=== PATIENT | female | born 1935 | race Caucasian/White ===

== ENCOUNTER 2020-11-28 14:43 | Inpatient (IN) | payer OTHER, MEDICAID ==
[~2020-11-28] VITALS: Ht 167.6 cm; Wt 80.4 kg
[2020-11-28 15:18] LABS: Basophils # (auto) 0 10 ^3/uL (0-0.2); Basophils % (auto) 0.2 % (0.0-2.0); Eosinophils # (auto) 0 10 ^3/uL (0-0.8); Hematocrit 35.6 % (36.0-46.0); Hemoglobin 11.8 g/dL (12.2-16.2); Lymphocytes # (auto) 0.8 10 ^3/uL (0.4-5.4); Lymphocytes % (auto) 8.5 % (10.0-50.0); Mean Corpuscular Hemoglobin 29.9 pg (28.0-32.0); Mean Corpuscular Hgb Conc. 33.2 g/dL (32.0-36.0); Monocytes # (auto) 0.9 10 ^3/uL (0-1.3); Monocytes % (auto) 9.4 % (0.0-12.0); Neutrophils # (auto) 7.7 10 ^3/uL (1.6-8.6); Neutrophils % (auto) 81.9 % (37.0-80.0); Nucleated Red Blood Cells % 0.1 %; Platelet Count (auto) 339 10^3/uL (140-450); Red Blood Cells 3.96 10^6/uL (4.0-5.20); Red Cell Distribution Width 17.4 % (11.8-14.3); White Blood Cell 9.4 10^3/uL (4.4-10.8)
[2020-11-28 15:27] LABS: Anion Gap 5 (5-15); Blood Urea Nitrogen 62 mg/dL (7-18); Carbon Dioxide 29 mmol/L (21-32); Chloride 109 mmol/L (98-107); Glucose 122 mg/dL (74-106); Sodium 143 mmol/L (136-145)
[2020-11-28 15:28] LABS: INR 1.29 (0.9-1.15)
[2020-11-28 15:29] LABS: Alanine Aminotransferase 15 U/L (13-56); Aspartate Aminotransferase 34 U/L (15-37); BUN/Creatinine Ratio 40.5; Blood Alcohol < 3.0 mg/dL (0-5); GFR African American 42 mL/min; GFR Non-African American 34 mL/min; Partial Thromboplastin Time < 20.0 sec (23.0-31.2)
[2020-11-28 15:29] LABS: Lactic Acid w/Reflex 2.1 mmol/L (0.4-2.0)
[2020-11-28 15:34] LABS: Alkaline Phosphatase 87 U/L (45-117); Bilirubin, Total 1.4 mg/dL (0.2-1.0); Total Protein 10.8 g/dL (6.4-8.2)
[2020-11-28] MEDS ORDERED: SODIUM CHLORIDE 0.9% 1,000 ML IV ONE (15:45)
[2020-11-28] MEDS ORDERED: SODIUM CHLORIDE 0.9% 500 ML IVB ONE (15:45)
[2020-11-28 15:52] LABS: Calcium 13.8 mg/dL (8.5-10.1); Potassium 2.7 mmol/L (3.5-5.1)
[2020-11-28] MEDS: POTASSIUM CHL 20MEQ/100ML 100 ML IV SCH ×2 (18:07→20:52)
[2020-11-28] MEDS ORDERED: methylPREDNISolone SOD SUCC 125 MG/2 ML VL IV ONE (19:15)
[2020-11-28] MEDS ORDERED: FUROSEMIDE 40 MG/4 ML VIAL IV ONE (19:15)
[2020-11-28 22:33] LABS: Urine Amorphous Crystal FEW /hpf (None Seen); Urine Bacteria MOD /hpf (None Seen); Urine Blood 1+ /uL (Negative); Urine Hyaline Cast FEW /lpf (0 - 2); Urine WBC 21 /hpf (0 - 5)
[2020-11-28] MEDS ORDERED: DOCUSATE SOD 100 MG CAP PO PRN (23:00)
[2020-11-28] MEDS ORDERED: NITROGLYCERIN 0.4 MG SL TAB SL PRN (23:00)
[2020-11-28] MEDS ORDERED: ACETAMINOPHEN 325 MG TAB PO PRN (23:00)
[2020-11-28] MEDS ORDERED: MORPHINE SULF INJ 2 MG/ML SYRINGE 1ML IV PRN (23:00)
[2020-11-28] MEDS ORDERED: HYDROcodone-ACET 5/325MG TAB PO PRN (23:00)
[2020-11-28] MEDS ORDERED: ONDANSETRON HCL 4 MG/2 ML VIAL IV PRN (23:00)
[2020-11-28] MEDS: SOD CHL 0.45% 1,000 ML IV SCH (23:13)
[2020-11-28 23:17] LABS: Alcohol, Urine < 3.0 mg/dL (0-10); Amphetamine Screen, Urine NEGATIVE (NEGATIVE); Barbiturate Scree,Urine NEGATIVE (NEGATIVE); Benzodiazephine Screen, Urine NEGATIVE (NEGATIVE); Cannabinoid Screen, Urine NEGATIVE (NEGATIVE); Cocaine Screen, Urine NEGATIVE (NEGATIVE); Opiate Scree,Urine NEGATIVE (NEGATIVE); Phencyclidine Screen, Urine NEGATIVE (NEGATIVE)
[2020-11-29 07:39] LABS: Basophils # (auto) 0 10 ^3/uL (0-0.2); Basophils % (auto) 0.1 % (0.0-2.0); Eosinophils # (auto) 0 10 ^3/uL (0-0.8); Hematocrit 33.1 % (36.0-46.0); Hemoglobin 10.7 g/dL (12.2-16.2); Lymphocytes # (auto) 0.8 10 ^3/uL (0.4-5.4); Lymphocytes % (auto) 10.6 % (10.0-50.0); Mean Corpuscular Hemoglobin 29.1 pg (28.0-32.0); Mean Corpuscular Hgb Conc. 32.4 g/dL (32.0-36.0); Mean Corpuscular Volume 89.7 fL (80.0-100.0); Monocytes # (auto) 0.4 10 ^3/uL (0-1.3); Neutrophils # (auto) 6.5 10 ^3/uL (1.6-8.6); Neutrophils % (auto) 84.3 % (37.0-80.0); Nucleated Red Blood Cells % 0.3 %; Platelet Count (auto) 304 10^3/uL (140-450); Red Blood Cells 3.69 10^6/uL (4.0-5.20); Red Cell Distribution Width 17.9 % (11.8-14.3); White Blood Cell 7.7 10^3/uL (4.4-10.8)
[2020-11-29 07:56] LABS: Albumin 1.7 g/dL (3.4-5.0); Calcium 11.9 mg/dL (8.5-10.1)
[2020-11-29 07:59] LABS: BUN/Creatinine Ratio 43.5
[2020-11-29 08:03] LABS: Bilirubin, Total 1.2 mg/dL (0.2-1.0)
[2020-11-29] MEDS: SOD CHL 0.45% 1,000 ML IV SCH (09:36)
[2020-11-29] MEDS ORDERED: POTASSIUM CHLORIDE 40 MEQ, LIDOCAINE 1% (LOCAL ANESTH.) 4 ML in SODIUM CHL 0.9% 250 ML IV ONE (09:45)
[2020-11-29] MEDS ORDERED: PIPERACILLIN-TAZOB 3.375GM 100 ML IV ONE (09:45)
[2020-11-29] MEDS: ZINC SULFATE 220mg CAP or TAB PO SCH (10:00)
[2020-11-29] MEDS: ASCORBIC ACID 500 MG TAB PO SCH ×2 (10:00→21:44)
[2020-11-29] MEDS: MULTIPLE VITAMIN TAB PO SCH (10:00)
[2020-11-29 11:31] LABS: Protein, Urine 33.8 mg/dL (0.0-11.9)
[2020-11-29 11:46] LABS: Calcium 12.2 mg/dL (8.5-10.1)
[2020-11-29 11:51] LABS: BUN/Creatinine Ratio 45.9; Phosphorus 3.5 mg/dL (2.5-4.90)
[2020-11-29] MEDS: AZITHROMYCIN 500MG/ 250ML 250 ML IV SCH (11:52)
[2020-11-29] MEDS: FAMOTIDINE (10MG/ML) 2ML VL IV SCH (11:52)
[2020-11-29] MEDS: D5W/SOD CHL 0.9%/KCL 40MEQ 1,000 ML IV SCH (11:52)
[2020-11-29] MEDS: PIPERACILLIN-TAZOB 2.25GM 50 ML IV SCH ×2 (11:53→17:33)
[2020-11-29] MEDS: HEPARIN SODIUM (PORCINE) 5000 UNITS/ML 1ML VIAL SC SCH ×2 (11:57→21:45)
[2020-11-29 12:05] LABS: Potassium 2.7 mmol/L (3.5-5.1)
[2020-11-29 13:00] VITALS: BP 101/63
[2020-11-29] MEDS ORDERED: HALOPERIDOL LACTATE 5 MG/ML INJ VIAL IM ONE (14:00)
[2020-11-29 16:00] VITALS: BP 107/63
[2020-11-29] MEDS ORDERED: POTASSIUM CHL 20MEQ/100ML 100 ML IV SCH (16:00)
[2020-11-29 21:46] VITALS: BP_SYST 116; BP_SYST 128; BP_DIAS 78
[2020-11-30] MEDS: PIPERACILLIN-TAZOB 2.25GM 50 ML IV SCH ×4 (01:03→17:10)
[2020-11-30] MEDS: D5W/SOD CHL 0.9%/KCL 40MEQ 1,000 ML IV SCH (05:29)
[2020-11-30 05:33] LABS: Basophils # (auto) 0 10 ^3/uL (0-0.2); Basophils % (auto) 0.1 % (0.0-2.0); Eosinophils # (auto) 0 10 ^3/uL (0-0.8); Eosinophils % (auto) 0.1 % (0.0-7.0); Hematocrit 30.4 % (36.0-46.0); Lymphocytes # (auto) 1.2 10 ^3/uL (0.4-5.4); Lymphocytes % (auto) 13.8 % (10.0-50.0); Mean Corpuscular Hemoglobin 29.5 pg (28.0-32.0); Mean Corpuscular Hgb Conc. 32.9 g/dL (32.0-36.0); Mean Corpuscular Volume 89.8 fL (80.0-100.0); Monocytes # (auto) 0.9 10 ^3/uL (0-1.3); Monocytes % (auto) 10.6 % (0.0-12.0); Neutrophils # (auto) 6.4 10 ^3/uL (1.6-8.6); Neutrophils % (auto) 75.4 % (37.0-80.0); Nucleated Red Blood Cells % 0.1 %; Platelet Count (auto) 240 10^3/uL (140-450); Red Blood Cells 3.38 10^6/uL (4.0-5.20); White Blood Cell 8.4 10^3/uL (4.4-10.8)
[2020-11-30 05:52] LABS: Albumin 1.6 g/dL (3.4-5.0); Calcium 11.3 mg/dL (8.5-10.1); Magnesium 2.3 mg/dL (1.6-2.6); Potassium 3.1 mmol/L (3.5-5.1)
[2020-11-30 06:00] LABS: BUN/Creatinine Ratio 43.5; Phosphorus 1.4 mg/dL (2.5-4.90)
[2020-11-30] MEDS ORDERED: CELE100C82 PO (07:53)
[2020-11-30 09:00] VITALS: BP 120/57
[2020-11-30] MEDS ORDERED: D5W/SOD CHL 0.45%/KCL 40MEQ 1,000 ML IV ONE (09:00)
[2020-11-30] MEDS ORDERED: POTASSIUM PHOSPHATE 44 MEQ in D5W 5% 250 ML IV ONE (09:45)
[2020-11-30] MEDS: MULTIPLE VITAMIN TAB PO SCH (10:00)
[2020-11-30] MEDS: AMIODARONE HCL 200 MG TAB PO SCH ×2 (10:00→20:49)
[2020-11-30] MEDS: ASCORBIC ACID 500 MG TAB PO SCH ×2 (10:00→20:48)
[2020-11-30] MEDS: ZINC SULFATE 220mg CAP or TAB PO SCH (10:00)
[2020-11-30] MEDS: FAMOTIDINE (10MG/ML) 2ML VL IV SCH (10:55)
[2020-11-30] MEDS: AZITHROMYCIN 500MG/ 250ML 250 ML IV SCH (10:55)
[2020-11-30] MEDS: POTASSIUM CHL 20MEQ/100ML 100 ML IV SCH ×3 (10:55→15:39)
[2020-11-30] MEDS ORDERED: POTASSIUM CHL 20MEQ/100ML 100 ML IV ONE (11:00)
[2020-11-30] MEDS ORDERED: ENOXAPARIN SOD 40 MG/0.4 ML SYRINGE SC ONE (11:00)
[2020-11-30] MEDS: HEPARIN SODIUM (PORCINE) 5000 UNITS/ML 1ML VIAL SC SCH ×2 (11:19→22:11)
[2020-11-30] MEDS ORDERED: POTASSIUM CHL 20MEQ/100ML 100 ML IV PRN (11:30)
[2020-11-30] MEDS ORDERED: MAGNESIUM SULFATE 1GM/100ML 200 ML IV ONE (11:30)
[2020-11-30] MEDS ORDERED: ZOLEDRONIC ACID 4 MG in SODIUM CHL 0.9% 100 ML IV ONE (11:30)
[2020-11-30] MEDS: D5W 5% 1,000 ML IV SCH ×2 (12:35→19:00)
[2020-11-30 13:00] VITALS: BP 122/74
[2020-11-30] MEDS: CALCITONIN 400unit/2ml Vial (200unit/ml) SC SCH ×2 (13:30→22:00)
[2020-11-30] MEDS ORDERED: DOCUSATE SOD 100 MG CAP PO ONE (13:45)
[2020-11-30 15:04] LABS: Hepatitis B Core IgM Negative; Hepatitis B Surface Antigen Negative (Negative)
[2020-11-30 15:05] LABS: Hepatitis C Antibody Negative (Negative)
[2020-11-30 16:53] VITALS: BP 151/72
[2020-11-30 17:59] LABS: Calcium 10.9 mg/dL (8.5-10.1)
[2020-11-30 18:01] LABS: BUN/Creatinine Ratio 40.6
[2020-11-30 18:27] LABS: Potassium 5.7 mmol/L (3.5-5.1)
[2020-11-30 21:15] LABS: Folate (Folic Acid) 8.31 ng/mL (5.38-24)
[2020-11-30 22:00] VITALS: BP 127/57
[2020-12-01] MEDS: PIPERACILLIN-TAZOB 2.25GM 50 ML IV SCH ×2 (00:21→06:19)
[2020-12-01] MEDS: D5W 5% 1,000 ML IV SCH ×5 (03:00→23:35)
[2020-12-01 05:00] VITALS: BP 124/62
[2020-12-01 07:23] LABS: Basophils # (auto) 0 10 ^3/uL (0-0.2); Basophils % (auto) 0.2 % (0.0-2.0); Eosinophils # (auto) 0 10 ^3/uL (0-0.8); Eosinophils % (auto) 0.7 % (0.0-7.0); Hemoglobin 9.6 g/dL (12.2-16.2); Lymphocytes # (auto) 1.1 10 ^3/uL (0.4-5.4); Lymphocytes % (auto) 18.1 % (10.0-50.0); Mean Corpuscular Hemoglobin 29.9 pg (28.0-32.0); Mean Corpuscular Volume 90.7 fL (80.0-100.0); Monocytes # (auto) 0.6 10 ^3/uL (0-1.3); Monocytes % (auto) 10.4 % (0.0-12.0); Neutrophils # (auto) 4.2 10 ^3/uL (1.6-8.6); Neutrophils % (auto) 70.6 % (37.0-80.0); Nucleated Red Blood Cells % 0.1 %; Platelet Count (auto) 203 10^3/uL (140-450); Red Cell Distribution Width 18.4 % (11.8-14.3)
[2020-12-01 07:38] LABS: Albumin 1.5 g/dL (3.4-5.0); Calcium 10.7 mg/dL (8.5-10.1); Magnesium 2.6 mg/dL (1.6-2.6); Potassium 3.7 mmol/L (3.5-5.1)
[2020-12-01 07:42] LABS: BUN/Creatinine Ratio 38.1; Bilirubin, Total 0.8 mg/dL (0.2-1.0); Phosphorus 1.7 mg/dL (2.5-4.90); Total Protein 7.8 g/dL (6.4-8.2)
[2020-12-01 09:00] VITALS: BP 127/76
[2020-12-01] MEDS: AMIODARONE HCL 200 MG TAB PO SCH ×2 (09:13→21:11)
[2020-12-01] MEDS: ZINC SULFATE 220mg CAP or TAB PO SCH (09:13)
[2020-12-01] MEDS: MULTIPLE VITAMIN TAB PO SCH (09:13)
[2020-12-01] MEDS: ASCORBIC ACID 500 MG TAB PO SCH ×2 (09:13→21:12)
[2020-12-01] MEDS: FAMOTIDINE (10MG/ML) 2ML VL IV SCH (09:26)
[2020-12-01] MEDS: HEPARIN SODIUM (PORCINE) 5000 UNITS/ML 1ML VIAL SC SCH (09:32)
[2020-12-01] MEDS ORDERED: HALOPERIDOL LACTATE 5 MG/ML INJ VIAL IM PRN (10:00)
[2020-12-01] MEDS ORDERED: ENOXAPARIN SOD 30 MG/0.3 ML SYRINGE SC SCH (10:00)
[2020-12-01] MEDS ORDERED: IOPAMIDOL 76 % (ISOVUE-370) 100ML BTL IV ONE (10:50)
[2020-12-01] MEDS: ENOXAPARIN SOD 80 MG/0.8ML SYRINGE SC SCH ×2 (11:02→21:19)
[2020-12-01] MEDS: PIPERACILLIN-TAZOB 3.375GM 100 ML IV SCH ×2 (12:00→17:34)
[2020-12-01 13:00] VITALS: BP 118/70
[2020-12-01 13:06] LABS: Immunoglobulin G, Serum 4824 mg/dL (586-1602)
[2020-12-01 17:00] VITALS: BP 123/60
[2020-12-01 22:00] VITALS: BP 118/67
[2020-12-02 05:00] VITALS: BP 110/62
[2020-12-02] MEDS: D5W 5% 1,000 ML IV SCH ×3 (06:16→23:39)
[2020-12-02] MEDS: PIPERACILLIN-TAZOB 3.375GM 100 ML IV SCH ×5 (06:16→23:39)
[2020-12-02 08:31] VITALS: BP 111/57
[2020-12-02] MEDS: ASCORBIC ACID 500 MG TAB PO SCH ×2 (10:00→20:30)
[2020-12-02] MEDS: ZINC SULFATE 220mg CAP or TAB PO SCH (10:00)
[2020-12-02] MEDS: MULTIPLE VITAMIN TAB PO SCH (10:00)
[2020-12-02] MEDS: AMIODARONE HCL 200 MG TAB PO SCH ×2 (10:00→20:30)
[2020-12-02] MEDS: ENOXAPARIN SOD 80 MG/0.8ML SYRINGE SC SCH ×2 (10:23→21:44)
[2020-12-02] MEDS: FAMOTIDINE (10MG/ML) 2ML VL IV SCH (10:27)
[2020-12-02 11:54] LABS: Potassium 3.5 mmol/L (3.5-5.1)
[2020-12-02 11:58] LABS: Calcium 8.8 mg/dL (8.5-10.1)
[2020-12-02 13:00] VITALS: BP 106/60
[2020-12-02 16:56] VITALS: BP 131/78
[2020-12-02] MEDS ORDERED: VANCOMYCIN PER PHARMACY 0 MG IV SCH (17:45)
[2020-12-02] MEDS: VANCOMYCIN 1GM/250ML 250 ML IV SCH (20:00)
[2020-12-02 22:00] VITALS: BP 128/102
[2020-12-03 05:00] VITALS: BP 120/55
[2020-12-03] MEDS: PIPERACILLIN-TAZOB 3.375GM 100 ML IV SCH (05:58)
[2020-12-03 06:10] LABS: Calcium 8.5 mg/dL (8.5-10.1)
[2020-12-03 06:22] LABS: Basophils # (auto) 0.1 10 ^3/uL (0-0.2); Eosinophils # (auto) 0.1 10 ^3/uL (0-0.8); Eosinophils % (auto) 2.3 % (0.0-7.0); Hematocrit 29.7 % (36.0-46.0); Hemoglobin 9.7 g/dL (12.2-16.2); Lymphocytes % (auto) 14.7 % (10.0-50.0); Mean Corpuscular Hemoglobin 29.2 pg (28.0-32.0); Mean Corpuscular Hgb Conc. 32.9 g/dL (32.0-36.0); Mean Corpuscular Volume 88.9 fL (80.0-100.0); Monocytes # (auto) 0.7 10 ^3/uL (0-1.3); Monocytes % (auto) 10.6 % (0.0-12.0); Neutrophils # (auto) 4.6 10 ^3/uL (1.6-8.6); Neutrophils % (auto) 70.4 % (37.0-80.0); Nucleated Red Blood Cells % 0.2 %; Platelet Count (auto) 194 10^3/uL (140-450); Red Blood Cells 3.34 10^6/uL (4.0-5.20); Red Cell Distribution Width 18.1 % (11.8-14.3); White Blood Cell 6.6 10^3/uL (4.4-10.8)
[2020-12-03] MEDS: POTASSIUM CHL 20MEQ/100ML 100 ML IV PRN (07:33)
[2020-12-03 09:00] VITALS: BP 118/67
[2020-12-03] MEDS: D5W 5% 1,000 ML IV SCH ×2 (09:30→13:45)
[2020-12-03] MEDS: FAMOTIDINE (10MG/ML) 2ML VL IV SCH (09:46)
[2020-12-03] MEDS: ZINC SULFATE 220mg CAP or TAB PO SCH (09:47)
[2020-12-03] MEDS: AMIODARONE HCL 200 MG TAB PO SCH ×2 (09:47→21:48)
[2020-12-03] MEDS: ENOXAPARIN SOD 80 MG/0.8ML SYRINGE SC SCH ×2 (09:47→21:48)
[2020-12-03] MEDS: ASCORBIC ACID 500 MG TAB PO SCH ×2 (09:47→21:49)
[2020-12-03] MEDS: MULTIPLE VITAMIN TAB PO SCH (09:47)
[2020-12-03 13:00] VITALS: BP 113/70
[2020-12-03] MEDS: levoFLOXacin 750MG 150 ML IV SCH (13:34)
[2020-12-03 16:44] VITALS: BP 115/68
[2020-12-03] MEDS: VANCOMYCIN 1GM/250ML 250 ML IV SCH (20:02)
[2020-12-03 22:00] VITALS: BP 126/65
[2020-12-04 05:00] VITALS: BP 159/70
[2020-12-04 06:09] LABS: Basophils # (auto) 0 10 ^3/uL (0-0.2); Basophils % (auto) 0.4 % (0.0-2.0); Eosinophils # (auto) 0.1 10 ^3/uL (0-0.8); Hematocrit 27.1 % (36.0-46.0); Hemoglobin 9.2 g/dL (12.2-16.2); Lymphocytes # (auto) 1.3 10 ^3/uL (0.4-5.4); Lymphocytes % (auto) 21.5 % (10.0-50.0); Mean Corpuscular Hemoglobin 29.8 pg (28.0-32.0); Mean Corpuscular Hgb Conc. 33.9 g/dL (32.0-36.0); Monocytes # (auto) 0.8 10 ^3/uL (0-1.3); Monocytes % (auto) 13.9 % (0.0-12.0); Neutrophils # (auto) 3.8 10 ^3/uL (1.6-8.6); Neutrophils % (auto) 63.2 % (37.0-80.0); Nucleated Red Blood Cells % 0.1 %; Platelet Count (auto) 168 10^3/uL (140-450); Red Blood Cells 3.09 10^6/uL (4.0-5.20); Red Cell Distribution Width 17.9 % (11.8-14.3); White Blood Cell 5.9 10^3/uL (4.4-10.8)
[2020-12-04] MEDS: D5W 5% 1,000 ML IV SCH ×2 (06:25→15:43)
[2020-12-04 06:37] LABS: BUN/Creatinine Ratio 18.2; Calcium 7.6 mg/dL (8.5-10.1)
[2020-12-04] MEDS: POTASSIUM CHL 20MEQ/100ML 100 ML IV PRN (07:39)
[2020-12-04 08:58] VITALS: BP 116/63
[2020-12-04] MEDS: ASCORBIC ACID 500 MG TAB PO SCH ×2 (10:00→22:00)
[2020-12-04] MEDS: ZINC SULFATE 220mg CAP or TAB PO SCH (10:00)
[2020-12-04] MEDS: AMIODARONE HCL 200 MG TAB PO SCH ×2 (10:00→22:00)
[2020-12-04] MEDS: MULTIPLE VITAMIN TAB PO SCH (10:00)
[2020-12-04] MEDS: levoFLOXacin 750MG 150 ML IV SCH (10:49)
[2020-12-04] MEDS: FAMOTIDINE (10MG/ML) 2ML VL IV SCH (10:50)
[2020-12-04] MEDS: ENOXAPARIN SOD 80 MG/0.8ML SYRINGE SC SCH ×2 (10:52→22:06)
[2020-12-04 13:06] VITALS: BP 118/78
[2020-12-04] MEDS ORDERED: POTASSIUM CHLORIDE 40 MEQ, LIDOCAINE 1% (LOCAL ANESTH.) 4 ML in SODIUM CHL 0.9% 250 ML IV ONE (13:15)
[2020-12-04 17:20] VITALS: BP 125/58
[2020-12-04] MEDS: VANCOMYCIN 1GM/250ML 250 ML IV SCH (20:01)
[2020-12-04 22:00] VITALS: BP 117/69
[2020-12-05 05:00] VITALS: BP 117/51
[2020-12-05 06:53] LABS: Hematocrit 27.8 % (36.0-46.0); Hemoglobin 9.5 g/dL (12.2-16.2); Mean Corpuscular Hemoglobin 30.1 pg (28.0-32.0); Mean Corpuscular Hgb Conc. 34.2 g/dL (32.0-36.0); Mean Corpuscular Volume 88.1 fL (80.0-100.0); Platelet Count (auto) 164 10^3/uL (140-450); Red Blood Cells 3.16 10^6/uL (4.0-5.20); Red Cell Distribution Width 18.1 % (11.8-14.3); White Blood Cell 6.7 10^3/uL (4.4-10.8)
[2020-12-05 06:59] LABS: Basophils % (manual) 0 (0.0-2.0); Blast Cells 0; Eosinophils % (manual) 0 (0-7); Myelocytes % 0; Promyelocytes % 0; Reactive Lymphocytes 0
[2020-12-05 07:10] LABS: Potassium 3.1 mmol/L (3.5-5.1)
[2020-12-05 07:19] LABS: BUN/Creatinine Ratio 15.1; Calcium 7.1 mg/dL (8.5-10.1)
[2020-12-05 07:58] LABS: Band Neutrophils % (manual) 39; Lymphocytes % (manual) 14 (10.0-50.0); Metamyelocytes % 1; Monocytes % (manual) 6 (0-12)
[2020-12-05] MEDS: POTASSIUM CHL 20MEQ/100ML 100 ML IV PRN (08:29)
[2020-12-05 08:47] VITALS: BP 121/64
[2020-12-05] MEDS: ZINC SULFATE 220mg CAP or TAB PO SCH (10:00)
[2020-12-05] MEDS: MULTIPLE VITAMIN TAB PO SCH (10:00)
[2020-12-05] MEDS: ASCORBIC ACID 500 MG TAB PO SCH ×2 (10:00→21:09)
[2020-12-05] MEDS: AMIODARONE HCL 200 MG TAB PO SCH ×2 (10:00→21:09)
[2020-12-05] MEDS: levoFLOXacin 750MG 150 ML IV SCH (10:30)
[2020-12-05] MEDS: FAMOTIDINE (10MG/ML) 2ML VL IV SCH (10:30)
[2020-12-05] MEDS: ENOXAPARIN SOD 80 MG/0.8ML SYRINGE SC SCH ×2 (10:36→21:09)
[2020-12-05 13:00] VITALS: BP 108/62
[2020-12-05] MEDS: D5W 5% 1,000 ML IV SCH (15:45)
[2020-12-05 17:00] VITALS: BP 109/60
[2020-12-05] MEDS: VANCOMYCIN 1GM/250ML 250 ML IV SCH (20:32)
[2020-12-05 22:00] VITALS: BP 97/54
[2020-12-06] MEDS: D5W 5% 1,000 ML IV SCH (03:52)
[2020-12-06 05:00] VITALS: BP 98/67
[2020-12-06 06:46] LABS: Hematocrit 25.7 % (36.0-46.0); Mean Corpuscular Hemoglobin 30.3 pg (28.0-32.0); Mean Corpuscular Hgb Conc. 34.9 g/dL (32.0-36.0); Mean Corpuscular Volume 86.8 fL (80.0-100.0); Platelet Count (auto) 151 10^3/uL (140-450); Red Blood Cells 2.96 10^6/uL (4.0-5.20); Red Cell Distribution Width 18.1 % (11.8-14.3); White Blood Cell 6.5 10^3/uL (4.4-10.8)
[2020-12-06 06:54] LABS: Basophils % (manual) 0 (0.0-2.0); Blast Cells 0; Eosinophils % (manual) 0 (0-7); Myelocytes % 0; Promyelocytes % 0; Reactive Lymphocytes 0
[2020-12-06 07:11] LABS: Calcium 6.6 mg/dL (8.5-10.1); Potassium 3.3 mmol/L (3.5-5.1)
[2020-12-06 07:15] LABS: BUN/Creatinine Ratio 14.5
[2020-12-06 07:29] LABS: Band Neutrophils % (manual) 3; Lymphocytes % (manual) 20 (10.0-50.0); Metamyelocytes % 1; Monocytes % (manual) 9 (0-12)
[2020-12-06] MEDS: POTASSIUM CHL 20MEQ/100ML 100 ML IV PRN ×2 (08:44→16:26)
[2020-12-06 09:00] VITALS: BP 94/52
[2020-12-06] MEDS: ZINC SULFATE 220mg CAP or TAB PO SCH (10:00)
[2020-12-06] MEDS: levoFLOXacin 750MG 150 ML IV SCH (10:34)
[2020-12-06] MEDS: FAMOTIDINE (10MG/ML) 2ML VL IV SCH (10:34)
[2020-12-06] MEDS: ASCORBIC ACID 500 MG TAB PO SCH ×2 (10:35→21:27)
[2020-12-06] MEDS: ENOXAPARIN SOD 80 MG/0.8ML SYRINGE SC SCH ×2 (10:35→21:27)
[2020-12-06] MEDS: MULTIPLE VITAMIN TAB PO SCH (10:35)
[2020-12-06] MEDS: AMIODARONE HCL 200 MG TAB PO SCH ×2 (10:35→21:27)
[2020-12-06 13:00] VITALS: BP 84/48
[2020-12-06 17:00] VITALS: BP 125/68
[2020-12-06 22:00] VITALS: BP 97/55
[2020-12-07 05:00] VITALS: BP 109/58
[2020-12-07 07:18] LABS: Basophils # (auto) 0 10 ^3/uL (0-0.2); Basophils % (auto) 0.2 % (0.0-2.0); Eosinophils # (auto) 0.1 10 ^3/uL (0-0.8); Eosinophils % (auto) 0.8 % (0.0-7.0); Hemoglobin 8.5 g/dL (12.2-16.2); Lymphocytes # (auto) 1.4 10 ^3/uL (0.4-5.4); Lymphocytes % (auto) 19.2 % (10.0-50.0); Mean Corpuscular Hemoglobin 29.7 pg (28.0-32.0); Mean Corpuscular Hgb Conc. 34.1 g/dL (32.0-36.0); Mean Corpuscular Volume 87.2 fL (80.0-100.0); Monocytes # (auto) 0.9 10 ^3/uL (0-1.3); Monocytes % (auto) 12.3 % (0.0-12.0); Neutrophils # (auto) 4.8 10 ^3/uL (1.6-8.6); Neutrophils % (auto) 67.5 % (37.0-80.0); Nucleated Red Blood Cells % 0.2 %; Platelet Count (auto) 166 10^3/uL (140-450); Red Blood Cells 2.86 10^6/uL (4.0-5.20); Red Cell Distribution Width 18.2 % (11.8-14.3); White Blood Cell 7.2 10^3/uL (4.4-10.8)
[2020-12-07 09:06] VITALS: BP 107/66
[2020-12-07] MEDS: ZINC SULFATE 220mg CAP or TAB PO SCH (09:08)
[2020-12-07] MEDS: ASCORBIC ACID 500 MG TAB PO SCH (09:08)
[2020-12-07] MEDS: FAMOTIDINE (10MG/ML) 2ML VL IV SCH (09:08)
[2020-12-07] MEDS: ENOXAPARIN SOD 80 MG/0.8ML SYRINGE SC SCH (09:08)
[2020-12-07] MEDS: AMIODARONE HCL 200 MG TAB PO SCH (09:08)
[2020-12-07] MEDS: MULTIPLE VITAMIN TAB PO SCH (09:08)
[2020-12-07 13:04] VITALS: BP 98/63
[2020-12-07 16:47] VITALS: BP 132/60
[2020-12-08] MEDS ORDERED: levoFLOXacin 750MG 150 ML IV SCH (10:00)
== END 2020-12-07 19:41 | DRG 70 ==
LOC: EDBD 14:43 → ER 14:43 → TELE 22:55 → TELE-EAST 11-29 10:20 → TELE-WESTW 11-29 15:38
PROVIDERS: ADMIT Nurse Practitioner Family; ATTEND Hospitalist
DX: G93.41 Metabolic encephalopathy (principal); E43 Unspecified severe protein-calorie malnutrition; I50.21 Acute systolic (congestive) heart failure; J96.01 Acute respiratory failure with hypoxia; J18.9 Pneumonia, unspecified organism; I26.99 Other pulmonary embolism without acute cor pulmonale; N39.0 Urinary tract infection, site not specified; N17.9 Acute kidney failure, unspecified; E87.0 Hyperosmolality and hypernatremia; C90.00 Multiple myeloma not having achieved remission; I13.0 Hypertensive heart and chronic kidney disease with heart failure and stage 1 through stage 4 chronic kidney disease, or unspecified chronic kidney disease; I47.2 Ventricular tachycardia; Z20.822 Contact with and (suspected) exposure to COVID-19; I95.9 Hypotension, unspecified; E83.52 Hypercalcemia; E11.22 Type 2 diabetes mellitus with diabetic chronic kidney disease; N18.32 Chronic kidney disease, stage 3b; E11.21 Type 2 diabetes mellitus with diabetic nephropathy; E11.649 Type 2 diabetes mellitus with hypoglycemia without coma; E87.6 Hypokalemia; N28.9 Disorder of kidney and ureter, unspecified; D89.2 Hypergammaglobulinemia, unspecified; E86.0 Dehydration; E87.5 Hyperkalemia; F17.200 Nicotine dependence, unspecified, uncomplicated; K59.00 Constipation, unspecified; Z79.01 Long term (current) use of anticoagulants; Z79.84 Long term (current) use of oral hypoglycemic drugs; Z82.3 Family history of stroke; Z86.711 Personal history of pulmonary embolism
CPT/HCPCS: 36415; 70450; 70551; 71045; 71250; 71275; 72193; 74176; 76775; 76856; 80048; 80053; 80202; 80307; 80320; 81001; 82105; 82306; 82310; 82378; 82570; 82607; 82746; 82784; 83036; 83605; 83735; 83880; 83883; 83970; 84100; 84132; 84155; 84156; 84165; 84166; 84300; 84443; 84484; 85007; 85025; 85027; 85379; 85610; 85730; 86301; 86304; 86334; 86335; 86705; 86803; 87040; 87086; 87088; 87186; 87340; 87426; 92610; 93005; 93306; 93970; 95819; 96361; 96374; 96375; 99291; G0378; J1956; J2001; J2543; J3480; J3489; J3490; J7042; J7060